=== PATIENT | female | born 1990 | race Asian ===

== ENCOUNTER 2020-09-23 15:57 | Emergency (ER) | payer OTHER ==
[~2020-09-23] VITALS: Ht 154.9 cm; Wt 42.6 kg
[2020-09-23 16:29] VITALS: Ht 154.9 cm; Wt 42.6 kg
[2020-09-23 20:15] LABS: microscopic required? NO
[2020-09-23 20:22] LABS: UA SPECIFIC GRAVITY 1.015 (1.005-1.035); urine erythrocyte NEGATIVE (NEGATIVE)
[2020-09-23 21:26] VITALS: BP 116/72
== END 2020-09-23 21:26 | disposition home or self-care (01) ==
LOC: ED 15:57
PROVIDERS: Emergency Medicine
DX: R51.9 Headache, unspecified (principal)